=== PATIENT | male | born 1945 | race Caucasian/White ===

== ENCOUNTER 2017-05-16 06:20 | Day surgery (SDC) | payer OTHER, MEDICARE ==
[2017-05-14 15:51] VITALS: BMI 28.8
[2017-05-16] MEDS ORDERED: ROPIVACAINE HCL 0.5% 30ML VIAL ONE (07:26)
[2017-05-16] MEDS ORDERED: MIDAZOLAM HCL 2 MG/2 ML SINGLE DOSE VIAL ONE ×2 (07:27)
[2017-05-16] MEDS ORDERED: PROPOFOL 20 ML ONE ×5 (07:34)
[2017-05-16] MEDS ORDERED: SUCCINYLCHOLINE CHLORIDE 200 MG/10 ML VIAL ONE (07:34)
[2017-05-16] MEDS ORDERED: ceFAZolin SODIUM 1 GM VIAL IVPB ONE (08:49)
--- NOTE | 2017-05-16 09:07 | HP ---
Satellite [facility] - Chief Complaint Chief Complaint: right shouder pain - Past Medical History Allergies/Adverse Reactions: Allergies Allergy/AdvReac Type Severity Reaction Status Date / Time No Known Drug Allergies Allergy Verified 05/16/17 06:53 - Current Medications Current Medications: Home Medications Medication Instructions Recorded Amlodipine Besylate 7.5 mg PO DAILY 05/14/17 Atorvastatin Ca [Lipitor] 20 mg PO DAILY 05/14/17 Hydrochlorothiazide [Hctz -] 12.5 mg PO DAILY 05/14/17 Hydrocodone/Acetaminophen [[place] 1 each PO Q6H PRN #40 tablet MDD 4 05/16/17 5-325 Tablet] Satellite Physical Exam - Physical Examination Vital Signs: Vital Signs Period Temp Pulse Resp BP Sys/Strong Pulse Ox Last 24 Hr 97.6 F 65 18 142/87 97 General Appearance: Well Nourished, Well Developed, Alert & Oriented x3 ENT: Clear Lung: Normal air movement Heart: Regular rate & rhythm Extremities: Other (right shoulder- + ttp, dec rom, + neer, + edwards, nvi MRI + rct, impingement) Neurological: Intact, Alert, Oriented Satellite Impression/Plan - Impression/Plan Impression: right shoulder impingement Operative Procedure: right shoulder arthroscopy with SAD Date to be Performed: 05/16/17
--- NOTE | 2017-05-16 09:31 | OP ---
Operative Note - Note: Operative Date: 05/16/17 ([facility]) Pre-Operative Diagnosis: right shoulder impingement, rct Operation: right shoulder arthroscopy with SAD Post-Operative Diagnosis: Same as Pre-op Surgeon: Amadou Sy Anesthesiologist/PURCHASING ADMINISTRATOR: Dequan Hein Anesthesia: General, Local Specimens Removed: shavings Estimated Blood Loss (mls): 5 Operative Report Dictated: Yes
--- NOTE | 2017-05-16 10:49 | OP ---
DATE OF OPERATION: 05/16/2017 PREOPERATIVE DIAGNOSIS: Right shoulder subacromial impingement and rotator cuff tear. POSTOPERATIVE DIAGNOSIS: Right shoulder subacromial impingement and rotator cuff tear. PROCEDURE: Right shoulder acromioplasty, subacromial decompression, distal clavicle excision. SURGEON: Naomi Buenrostro MD VISUAL EDUCATOR: SHATSA Overton, Josiah Reeves MD. ANESTHESIOLOGIST: Dequan Hein CRNA, right interscalene block, LMA anesthesia. DRAINS: None. COMPLICATIONS: None. BLOOD LOSS: Minimal. BLOOD GIVEN: None. FLUID REPLACEMENT: 500 mL. INDICATION: This patient is a 72-year-old male with a preoperative diagnosis of a right shoulder subacromial impingement, weakness, pain, decreased range of motion, and a rotator cuff tear. After extensive preoperative discussions about the potential risks, complications, alternatives, and benefits to surgery versus nonsurgical treatment, the patient is electing to go forward with surgery. DESCRIPTION OF PROCEDURE: Patient was brought to the operating room, peripheral IV placed, IV sedation given. Ancef 1 g IV was given. Right interscalene block was performed. LMA anesthesia was induced. He was placed into the beach chair position with ample padding throughout. The right upper extremity was prepped and draped in a sterile fashion. Bony landmarks were marked out with a marking pen. A posterior portal was established and diagnostic glenohumeral arthroscopy was performed. Patient seen to have extensive damage to the rotator cuff. He had a complete tear. There was no rotator cuff left. Both the supraspinatus and infraspinatus were not visualized. After extensive visualization, still there was no rotator cuff. The patient had some glenohumeral osteoarthritis, minimal amount of humeral head osteoarthritis, and he did have subacromial bursitis. Next, we established a lateral portal under direct visualization using a spinal needle, a No. 11 scalpel blade, and a green cannula was introduced into the subacromial space. A soft tissue bursectomy/extensive debridement was performed with the ArthroCare wand. This revealed a moderate to large size subacromial spur and a large distal clavicle spur. Both were taken down with the 5.5-mm oval bur and fine tuned in reverse and the debris removed with a shaver. Photographs were taken before and after. Again I looked at the top, searched for the rotator cuff, moved the arm through a full range of motion. There was no rotator cuff whatsoever. The area was copiously irrigated and washed out, all instrumentation removed. Blood loss was practically zero. The arthroscopy portals were closed with 3-0 nylon sutures. The area was then washed and dried, covered with 4-inch Aquacel. A sling was applied. Total operative time was about 30 minutes. There were no complications during the case. The patient tolerated the procedure well and was brought to ambulatory recovery in stable condition. NAOMI BUENROSTRO M.D. [id number]
[2017-05-16 12:29] VITALS: BP 130/77; PULSE 85
[2017-05-16 12:47] VITALS: TEMP 98.2
[2017-05-16] MEDS ORDERED: oxyCODONE HCL 5 MG TABLET PO PRN (13:23)
[2017-05-16] MEDS ORDERED: ONDANSETRON 4 MG/2 ML VIAL IVPUSH PRN (13:23)
[2017-05-16] MEDS ORDERED: LACTATED RINGERS SOLUTION 1,000 ML IV SCH (13:30)
--- NOTE | 2017-05-17 15:19 | PATH ---
Surgical Pathology Report Patient Name: KALE NEW [facility]. Rec. #: [id number] /Age/Gender: 1945 (Age: 72) / M Account: [id number] Location: [facility] SURGICAL Taken: 05/16/2017 Received: 05/16/2017 Reported: 05/17/2017 Physicians: Amadou Sy M.D. Specimen(s) Received RIGHT SHOULDER SHAVINGS Clinical History Right shoulder impingement Final Diagnosis RIGHT SHOULDER, ARTHROSCOPIC SHAVING: PORTIONS OF SYNOVIUM, CARTILAGE, SKELETAL MUSCLE AND BONE CONSISTENT WITH ARTHROSCOPIC SHAVINGS. Electronically Signed Jorge Soto M.D. Gross Description Received in formalin, labeled "right shoulder shavings," is a 4.5 x 4.0 x 0.8 cm. aggregate of jj-yellow soft tissue fragments. A associate sales representative portion is submitted in one cassette. /05/16/2017 [place]udi05/16/2017
== END 2017-05-16 12:25 | disposition home or self-care (01) ==
LOC: JASU-SURG 06:20
PROVIDERS: ATTEND Orthopaedic Surgery
PROC: 0PB94ZZ Excision of Right Clavicle, Percutaneous Endoscopic Approach (ICD-10-PCS; 2017-05-16)
PROC: 0RBJ4ZZ Excision of Right Shoulder Joint, Percutaneous Endoscopic Approach (ICD-10-PCS; principal; 2017-05-16 08:00)
DX: M75.41 Impingement syndrome of right shoulder (principal); M75.101 Unspecified rotator cuff tear or rupture of right shoulder, not specified as traumatic
CPT/HCPCS: 88304-TC; 94760

== ENCOUNTER 2019-09-10 07:18 | Inpatient (IN) | payer OTHER, MEDICARE ==
[2019-09-09 17:41] VITALS: BMI 26.9
[2019-09-10 08:24] LABS: PH,URINE 5.5 (5.0-8.0); URINE APPEARANCE CLEAR; URINE BILIRUBIN NEGATIVE (NEGATIVE); URINE COLOR YELLOW; URINE GLUCOSE (UA) NEGATIVE (NEGATIVE); URINE KETONE NEGATIVE (NEGATIVE); URINE LEUK ESTERASE NEGATIVE (NEGATIVE); URINE NITRITE NEGATIVE (NEGATIVE); URINE PROTEIN NEGATIVE (NEGATIVE); URINE UROBILINOGEN 0.2 mg/dL (0.2-1.0)
[2019-09-10] MEDS ORDERED: DEXAMETHASONE SOD PHOSPHATE 4 MG/1 ML VIAL ONE (08:34)
[2019-09-10] MEDS ORDERED: SODIUM CHLORIDE 0.9% P/F 10 ML VIAL IJ ONE (08:34)
[2019-09-10] MEDS ORDERED: ceFAZolin SODIUM 1 GM VIAL ONE ×2 (08:34→17:29)
[2019-09-10] MEDS ORDERED: PROPOFOL 20 ML ONE ×2 (08:35)
[2019-09-10] MEDS ORDERED: EPHEDRINE SULFATE/0.9% NACL/PF 50 MG/10 ML SYRINGE NR ONE (08:41)
[2019-09-10] MEDS ORDERED: oxyCODONE HCL 5 MG TABLET PO PRN ×2 (09:02→12:36)
--- NOTE | 2019-09-10 09:06 | HP ---
Satellite [facility] - Chief Complaint Chief Complaint: right shoulder pain - Past Medical History Allergies/Adverse Reactions: Allergies Allergy/AdvReac Type Severity Reaction Status Date / Time No Known Drug Allergies Allergy Verified 09/09/19 17:41 - Current Medications Current Medications: Home Medications Medication Instructions Recorded Amlodipine Besylate 7.5 mg PO DAILY 05/14/17 Atorvastatin Ca [Lipitor] 20 mg PO DAILY 05/14/17 Hydrochlorothiazide [Hctz -] 12.5 mg PO DAILY 05/14/17 Hydrocodone/Acetaminophen [[place] 1 each PO Q6H PRN #40 tablet MDD 4 05/16/17 5-325 Tablet] Satellite Physical Exam - Physical Examination Vital Signs: Vital Signs Period Temp Pulse Resp BP Sys/Strong Pulse Ox Last 24 Hr 97.7 F 81 20 148/95 97 General Appearance: Well Nourished, Well Developed, Alert & Oriented x3 ENT: Clear Lung: Normal air movement Extremities: Other (right shoulder- + ttp ,decr rom, nvi, MRI + chronic RC arthropathy, GH djd) Neurological: Intact, Alert, Oriented Satellite Impression/Plan - Impression/Plan Impression: right shoulder chronic RC arthropathy, GH djd Operative Procedure: right reverse TSA Date to be Performed: 09/10/19
[2019-09-10] MEDS ORDERED: BUPIVACAINE LIPOSOME/PF (EXPAREL) 266 MG/20 ML VIAL ONE (09:37)
[2019-09-10] MEDS ORDERED: MIDAZOLAM HCL 2 MG/2 ML SINGLE DOSE VIAL ONE ×3 (09:42)
[2019-09-10] MEDS ORDERED: ceFAZolin SODIUM 1 GM VIAL IVPB ONE (10:30)
[2019-09-10] MEDS ORDERED: HYDROmorphone HCl 2 MG/ML VIAL ONE ×2 (11:38→13:35)
[2019-09-10] MEDS ORDERED: traMADol HCL 50 MG TABLET PO PRN (12:36)
[2019-09-10] MEDS ORDERED: ACETAMINOPHEN 1000 MG/100 ML VIAL (NON FORMULARY) IVPB ONE (12:36)
[2019-09-10] MEDS ORDERED: ONDANSETRON 4 MG/2 ML VIAL IVPUSH PRN (12:46)
[2019-09-10] MEDS ORDERED: HYDROmorphone HCl 2 MG/ML VIAL IVPUSH PRN (12:49)
--- NOTE | 2019-09-10 12:57 | OP ---
Operative Note - Note: Operative Date: 09/10/19 Pre-Operative Diagnosis: right shoulder OA Operation: right reverse Total Shoulder Replacement Post-Operative Diagnosis: Same as Pre-op Surgeon: Amadou Sy Concrete Panel Installer: Yuri Peck Anesthesiologist/AGRICULTURE MECHANIC: Sharlene Miles Anesthesia: General, Local Specimens Removed: right humeral head Estimated Blood Loss (mls): 200 Drains, Volume Out (mls): 0 Blood Volume Replaced (mls): 0 Fluid Volume Replaced (mls): 750 Operative Report Dictated: Yes
[2019-09-10] MEDS ORDERED: ONDANSETRON 4 MG/2 ML VIAL ONE (13:21)
[2019-09-10] MEDS ORDERED: ACETAMINOPHEN INJECTION 100 ML IVPB ONE (13:35)
[2019-09-10] MEDS: HYDROmorphone HCl 2 MG/ML VIAL IVPUSH PRN ×3 (13:40→13:55)
[2019-09-10] MEDS: ceFAZolin 2 GRAM PREMIX BAG IVPB SCH (17:30)
[2019-09-10 19:07] LABS: HEMATOCRIT 40.6 % (35.4-49); HEMOGLOBIN 13.9 GM/dL (11.7-16.9); MCH 31.9 pg (25.7-33.7); MCHC 34.2 g/dl (32.0-35.9); MEAN CELL VOLUME 93.2 fl (80-96); MEAN PLT VOLUME 6.6 fl (7.5-11.1); PLATELET COUNT 196 K/MM3 (134-434); RBC 4.36 M/mm3 (4.00-5.60); RDW 15.4 % (11.9-15.9); WHITE BLOOD COUNT 12.3 K/mm3 (4.0-10.0)
[2019-09-10] MEDS: LACTATED RINGERS SOLUTION 1,000 ML IV SCH ×2 (19:14→19:59)
[2019-09-10] MEDS: ACETAMINOPHEN 325 MG TABLET (FP) PO SCH ×2 (19:14→21:22)
[2019-09-10] MEDS: oxyCODONE HCL 5 MG TABLET PO PRN (21:23)
[2019-09-10] MEDS: oxyCODONE HCL 10 MG SUSTAINED ACTING TABLET PO SCH (21:28)
[2019-09-11] MEDS: oxyCODONE HCL 5 MG TABLET PO PRN (02:43)
[2019-09-11] MEDS: ACETAMINOPHEN 325 MG TABLET (FP) PO SCH ×2 (02:44→07:56)
[2019-09-11] MEDS: ceFAZolin 2 GRAM PREMIX BAG IVPB SCH (02:45)
[2019-09-11 08:19] LABS: HEMOGLOBIN 11.4 GM/dL (11.7-16.9); MCH 32.2 pg (25.7-33.7); MCHC 34.6 g/dl (32.0-35.9); MEAN CELL VOLUME 93.1 fl (80-96); MEAN PLT VOLUME 6.4 fl (7.5-11.1); PLATELET COUNT 146 K/MM3 (134-434); RBC 3.55 M/mm3 (4.00-5.60); RDW 15.1 % (11.9-15.9); WHITE BLOOD COUNT 6.8 K/mm3 (4.0-10.0)
--- NOTE | 2019-09-11 09:35 | PN ---
Progress Note, Physician Chief Complaint: R shouldern Pain Right reverse total shoulder replacement History of Present Illness: Previous notes and events reviewed awake and alert NAD denies complaints of R shoulder pain denies complaints of chest pain or SOB - Current Medication List Current Medications: Active Medications Acetaminophen (Tylenol -) 650 mg PO Q6H [facility] Stop: 09/13/19 12:44 Last Admin: 09/11/19 07:56 Dose: 650 mg Lactated Ringer's (Lactated Ringers Solution) 1,000 mls @ 75 mls/hr IV ASDIR [facility] Last Admin: 09/10/19 19:59 Dose: 0 mls Oxycodone HCl (Roxicodone -) 5 mg PO Q3H PRN PRN Reason: PAIN LEVEL 4 - 6 Last Admin: 09/11/19 02:43 Dose: 5 mg Oxycodone HCl (Roxicodone -) 10 mg PO Q3H PRN PRN Reason: PAIN LEVEL 7 - 10 Oxycodone HCl (Oxycontin -) 10 mg PO BID [facility] Stop: 09/11/19 21:59 Last Admin: 09/10/19 21:28 Dose: Not Given Tramadol HCl (Ultram -) 50 mg PO Q3H PRN PRN Reason: PAIN LEVEL 1 - 3 - Objective Vital Signs: Vital Signs Temperature 97.7 F 09/11/19 05:49 Pulse Rate 71 09/11/19 05:49 Respiratory Rate 15 09/11/19 05:49 Blood Pressure 132/70 09/11/19 05:49 O2 Sat by Pulse Oximetry (%) 92 L 09/10/19 19:12 Constitutional: Yes: No Distress, Calm Eyes: Yes: Conjunctiva Clear HENT: Yes: Atraumatic Cardiovascular: Yes: Regular Rate and Rhythm Respiratory: Yes: Regular, Wheezes Gastrointestinal: Yes: Normal Bowel Sounds, Soft Musculoskeletal: Yes: Muscle Weakness (RUE) Extremities: Yes: WNL Edema: No Wound/Incision: Yes: Dressing Dry and Intact (R shoulder) Neurological: Yes: Alert, Oriented Psychiatric: Yes: Alert, Oriented Labs: CBC, BMP 09/11/19 07:55 Problem List - Problems (1) Right shoulder pain Assessment/Plan: -POD #1 Right Reverse Total Shoulder Replacement -Orthopedic on board -pain control -PT -Incentive Spirometer Code(s): M25.511 - PAIN IN RIGHT SHOULDER (2) HTN (hypertension) Assessment/Plan: -Amlodipine, Chlorthalidone -low Na diet Code(s): I10 - ESSENTIAL (PRIMARY) HYPERTENSION (3) HLD (hyperlipidemia) Assessment/Plan: -Atorvastatin Code(s): E78.5 - HYPERLIPIDEMIA, UNSPECIFIED Assessment/Plan see problem list
[2019-09-11] MEDS ORDERED: PARoxetine HCL 20 MG TABLET PO SCH (10:00)
[2019-09-11] MEDS ORDERED: LAMOTRIGINE 100 MG PO SCH (10:00)
[2019-09-11] MEDS: oxyCODONE HCL 10 MG SUSTAINED ACTING TABLET PO SCH (10:22)
[2019-09-11 10:30] VITALS: BP 131/76; PULSE 70; TEMP 98.3
[2019-09-11] MEDS ORDERED: amLODIPine BESYLATE 5 MG TABLET (FP) PO SCH (10:45)
[2019-09-11] MEDS ORDERED: CHLORTHALIDONE 25 MG TABLET PO SCH (10:45)
[2019-09-11] MEDS ORDERED: GABAPENTIN 100 MG CAPSULE PO SCH (10:45)
[2019-09-11] MEDS ORDERED: FOLIC ACID 1 MG TABLET (FP) PO SCH (10:45)
--- NOTE | 2019-09-11 11:02 | SPEC ---
DATE OF OPERATION: 09/10/2019 PREOPERATIVE DIAGNOSIS: Right glenohumeral osteoarthritis/rotator cuff arthropathy. POSTOPERATIVE DIAGNOSIS: Right glenohumeral osteoarthritis/rotator cuff arthropathy. PROCEDURE: Right reverse total shoulder replacement. SURGEON: Naomi Buenrostro MD CONDUCTOR SYMPHONIC ORCHESTRA: SHASTA Overton ANESTHESIOLOGIST: Sharlene Miles MD ANESTHESIA: Right interscalene block with LMA anesthesia. DRAINS: None. COMPLICATIONS: None. BLOOD LOSS: 200 mL. BLOOD GIVEN: None. FLUID REPLACEMENT: 750 mL Plasma-Lyte. SPECIMEN: Right humeral head. This patient is a 74-year-old male with a preoperative diagnosis of a severe right glenohumeral osteoarthritis/rotator cuff arthropathy. After understanding the potential risks, complications, alternatives, and benefits of surgery versus nonsurgical treatment, the patient elected to undergo this procedure. DESCRIPTION OF PROCEDURE: The patient received 3 g of IV Ancef. Right interscalene block was performed. He was placed into the beach chair position with ample padding throughout. LMA anesthesia was induced. He was placed into the beach-chair position with ample padding throughout. The right upper extremity was prepped and draped in a sterile fashion. A deltopectoral approach incision was marked out using the coracoid and mid aspect of the proximal humerus as landmarks. The incision was made with the No. 15 scalpel blade. Subcutaneous hemostasis was achieved with a Bovie cautery. Dissection was done through the superficial fascia. Blunt dissection was done with my finger in the deltopectoral interval. The cephalic vein was retracted medially. The Gelpi self-retaining retractors were placed into the wound. I found the conjoined tendon off the coracoid and used the Bovie to incise lateral to it. I was then able to cut down to bone and preserve the medial and lateral capsular flaps. The rotator cuff subscapularis was very deficient. I then peeled the soft tissues, including the anterior aspect of the deltoid insertion off the humerus. The biceps tendon was seen to be frayed, degenerated out of its groove, and therefore I did a biceps tenolysis. Appropriate Fukuda and pickle-fork retractors were placed into the wound, exposing the proximal humerus. I was able to easily dislocate it anteriorly. It was extremely arthritic. Next, using the external guide and a broach, I used the oscillating saw to do a cut at the articular margin. Osteophytes were removed with the rongeur. Some soft tissue was removed with the Bovie. I was able to expose the proximal humerus quite well. Next, using the standard technique, using the Surphace Reverse Total Shoulder Replacement System, we used first the starting awl and then the sequential hand broaches until we had cortical chatter. Then we used the humeral stem-shape broaches and mallet. We eventually seated a 15-size stem that had excellent cortical contact and was very stable throughout. We did not need to use the calcar reamer as the humeral cut was at the right angle. Next, our attention was turned to the glenoid. The Bovie was used to remove soft tissue, including some capsular attachments and the labrum. Retractors were placed into the wound to retract the humerus and expose the glenoid. With excellent direct visualization, we then put on the glenoid glenosphere, lining it up appropriately and put in the 3.2-mm guidewire. We went through 2 cortices. We then used the guidewire to do the glenoid reamer. We were able to ream the glenoid until we got bleeding subchondral bone. More bone was taken inferiorly than superiorly, but it was concentric. The guidewire was then removed, and we put on the actual 28-mm glenoid baseplate, held it in place with a 24-mm central screw. Then using the typical standard technique, we put in the screws. The screws in the glenoid baseplate were a 24-mm centrally, 60-mm anteriorly, 32-mm superiorly, 32-mm inferiorly, and 36-mm posteriorly. We had excellent compression of the glenoid baseplate against the glenoid and overall concentric fit. Next, we put on a 36-mm glenosphere. This was the actual implant, impacted in place, and it was quite stable. Next, our attention was turned to the humerus. We cleaned up the humeral shaft, put in an actual size-15 humeral press-fit porous-coated stem and used the mallet to put it down to the appropriate level. We then trialed the size of the humeral glenosphere, and it ended up being a 40-mm implant. It was extremely stable. In fact, it was very difficult to dislocate. Next, this trial was removed, and the actual 40-mm humeral glenosphere was placed on, it was reduced, and was extremely stable throughout. The area was copiously irrigated and washed out. The capsule was closed anteriorly with several No. 1 Ti-Cron sutures, the deep fascial layer closed with No. 1 Ti-Cron, and the superficial deltoid fascia closed with 0 Vicryl suture. A 2-0 Vicryl was used to close the deep dermal layer, and final skin reapproximation was done with a running subcuticular 3-0 V-Loc suture. The area was then washed and dried, covered with a 10-inch Aquacel dressing. The patient was extubated in the operating room. There was total blood loss of 200 mL. There were no complications during the case. The shoulder immobilizer was placed in the operating room, and he was brought to the PACU in stable condition. Total operative time was about 1 hour and 40 minutes. The humeral prosthesis was a Press-Fit number 14 with a 4-mm metal baseplate and a 4-mm polyethylene cup constrained. NAOMI BUENROSTRO M.D. [id number]
[2019-09-11] MEDS ORDERED: PT OWN MED DRAWER 7, Y5N ONE (11:04)
--- NOTE | 2019-09-11 11:31 | PN ---
Progress Note (short form) - Note Progress Note: Ortho Pt seen and examined s/p right reverse TSA pod #1 Selected Entries 09/11/19 10:29 Temperature 98.3 F Pulse Rate 70 Respiratory 20 Rate Blood Pressure 131/76 Laboratory Tests 09/11/19 07:55 WBC 6.8 Hgb 11.4 L Hct 33.0 L D Plt Count 146 D dressing c/d/i, good rom of elbow, wrist and hand nvi a/p PT rom exercises d/c home today f/u in1 week
--- NOTE | 2019-09-11 11:33 | DS ---
Physical Examination Vital Signs: Vital Signs Temperature 98.3 F 09/11/19 10:29 Pulse Rate 70 09/11/19 10:29 Respiratory Rate 20 09/11/19 10:29 Blood Pressure 131/76 09/11/19 10:29 O2 Sat by Pulse Oximetry (%) 97 09/11/19 09:00 Labs: CBC, BMP 09/11/19 07:55 Discharge Summary Problems reviewed: Yes Reason For Visit: OSTEOARTHRITIS RIGHT SHOULDER Current Active Problems HLD (hyperlipidemia) (Acute) HTN (hypertension) (Acute) Right shoulder pain (Acute) Procedures: Principal: right reverse TSA Hospital Course: admitted for elective right reverse TSA, post-op per protocol, stable for d/c Condition: Good - Instructions Diet, Activity, Other Instructions: Post -op Instruction Sheet - Shoulder Surgery - Sling/Immobilizer : You have been placed in a sling. As long as you are wearing this, your shoulder is well protected. You may come out of the sling to dress , or do exercises as directed. You may bend and straighten the elbow, and move your wrist and fingers, but DO NOT use your own muscles to move your elbow away from your side until directed to do so. Please sleep with the sling on. You may find it more comfortable to sleep with a small pillow behind your elbow, or in a recliner. To wash your armpit, you may lean slightly forward and let your arm dangle slightly away from your side and wash with a washcloth. - Use an ice bag/pack on the shoulder for 15 minutes every 2 hours. - Pain medication was sent to your Pharmacy. - Keep your dressing clean and dry. Please call the office to make an appointment for 1 week after surgery. Your dressing will be removed at that time. - No Lifting. - Starting 1-2 days after surgery, you may take your arm out of the sling 3 times a day to move your shoulder, elbow and wrist to prevent stiffness. - Please call the office at [phone] if there are any questions or concerns. Referrals: Amadou Sy MD [Staff Physician] - Disposition: HOME - Home Medications Comprehensive Discharge Medication List: Ambulatory Orders Amlodipine Besylate 10 mg PO DAILY 05/14/17 Atorvastatin Ca [Lipitor] 20 mg PO DAILY 05/14/17 Hydrocodone/Acetaminophen [[place] 5-325 Tablet] 1 each PO Q6H PRN #40 tablet MDD 4 05/16/17 Acetaminophen [Tylenol .Extra-Strength -] 3 tablet PO PRN 09/10/19 Bupropion HCl [Wellbutrin Xl] 300 mg PO DAILY 09/10/19 Chlorthalidone 25 mg PO DAILY 09/10/19 Folic Acid 1 mg PO DAILY 09/10/19 Gabapentin [Neurontin -] 100 mg PO DAILY 09/10/19 Lamotrigine [Lamotrigine ER] 100 mg PO DAILY 09/10/19 Muriposin 1 unit .ROUTE DAILY 09/10/19 Paroxetine HCl [Paxil] 40 mg PO DAILY 09/10/19 Hydrocodone/Acetaminophen [Hydrocodone-Acetamin 5-325 mg] 1 each PO Q6H #40 tablet MDD 4 09/11/19
--- NOTE | 2019-09-11 12:34 | PN ---
Progress Note (short form) - Note Progress Note: POD #1 s/p R reverse total shoulder replacement under GA with R interscalene block. Patient doing well, pain controlled with current Rx, mild nausea with oxycodone but controlled. All questions answered.
[2019-09-11] MEDS ORDERED: ATORVASTATIN CA 20 MG TABLET (FP) PO SCH (22:00)
--- NOTE | 2019-09-12 16:48 | PATH ---
Surgical Pathology Report Patient Name: KALE NEW Med. Rec. #: [id number] /Age/Gender: 1945 (Age: 74) / M Account: [id number] Location: [facility] MED/SURG Taken: 09/10/2019 Received: 09/10/2019 Reported: 09/12/2019 Physicians: Amadou Sy M.D. Specimen(s) Received RIGHT HUMERAL HEAD Clinical History Osteoarthritis right shoulder Final Diagnosis RIGHT HUMERAL HEAD, RESECTION: DEGENERATIVE JOINT DISEASE, RIGHT SHOULDER. Electronically Signed Marcelo Richmond M.D. Gross Description Received in formalin labeled "right humeral head," is a 5.8 x 5.2 x 4.0 cm portion of bone, consistent with a humeral head. The margin of resection is smooth. There is a 3.1 cm in greatest dimension area of eburnation present. The remaining articular surface is jj-brown and focally granular. The underlying trabecular bone is yellow and hard. A data entry representative section is submitted in one cassette, following decalcification. /09/10/2019 [facility]/09/10/2019
== END 2019-09-11 13:15 | disposition home or self-care (01) | DRG 483 ==
LOC: JSAMEDAYSX 07:18 → EDSTATUS 10:00 → J8W 18:14
PROVIDERS: ADMIT Orthopaedic Surgery; ATTEND Orthopaedic Surgery
PROC: 0RRJ00Z Replacement of Right Shoulder Joint with Reverse Ball and Socket Synthetic Substitute, Open Approach (ICD-10-PCS; principal; 2019-09-10 09:30)
DX: M19.011 Primary osteoarthritis, right shoulder (principal); I10 Essential (primary) hypertension; E78.5 Hyperlipidemia, unspecified
CPT/HCPCS: 36415; 73030-TC-RT-FY; 81003; 85027; 88304-TC; 88311-TC; 94010; 94760; 97116-GP; 97161-GP; J0131

== ENCOUNTER 2019-10-07 15:31 | Inpatient (IN) | payer OTHER, MEDICARE ==
--- NOTE | 2019-10-07 15:51 | PDOC ---
History of Present Illness - General History Source: Patient Exam Limitations: No Limitations - History of Present Illness Initial Comments: 10/07/19 15:51 Garrick Fitzgerald is a 74M with PMH HTN, HLD, total shoulder arthroplasty 4 weeks ago presenting with R shoulder dislocation sent from surgeon Dr. Sy for admission for OR closed reduction. Patient reports he had R shoulder TSA [address] Sy for correction on injuries from shoulder trauma a few years ago. Tolerated well and recovered, but hardware dislocated 4 days ago. Patient was able to reduceshoulder by himself. Today shoulder hardware dislocated again, unable to reduce alone. Presented to ortho office, unable to reduce this morning. OR equipment unavailable today, so sent by ortho for admission for OR tomorrow for closed reduction. Patient reports constant 10/10 pain in shoulder worse when moving, but has no numbness/tingling/weakness in right elbow or hand. Denies fever/chills, N/V. At home tried taking Percocet and Tylenol with limited relief. NKDA PMH HTN, HLD. No other cardiac/pulmonary history. PSH R shoulder rotator cuff, R knee replacement <Danny Finn - Last Filed: 10/07/19 17:12> <Estephania Brewster - Last Filed: 10/09/19 10:31> - General Chief Complaint: Shoulder Dislocation Stated Complaint: SHOULDER PAIN Time Seen by Provider: 10/07/19 15:42 Past History - Past Medical History Anemia: No Asthma: No Cancer: No Cardiac Disorders: No CVA: No COPD: No CHF: No Dementia: No Diabetes: No GI Disorders: No Disorders: No HTN: Yes (borderline) Hypercholesterolemia: No Liver Disease: No Seizures: No Thyroid Disease: No - Surgical History Abdominal Surgery: No Appendectomy: No Cardiac Surgery: No Cholecystectomy: No Lung Surgery: No Neurologic Surgery: No Orthopedic Surgery: Yes (R KNEE ARTHROSCOPY,R RTC REPAIR) - Immunization History Immunization Up to Date: Yes - Psycho Social/Smoking Cessation Hx Smoking Status: No Smoking History: Current every day smoker Years of Tobacco Use: 50 Have you smoked in the past 12 months: Yes Number of Cigarettes Smoked Daily: 8 Information on smoking cessation initiated: Yes 'Breaking Loose' booklet given: 09/10/19 Hx Alcohol Use: Yes Drug/Substance Use Hx: No Substance Use Type: Alcohol, Marijuana Hx Substance Use Treatment: Yes <Danny Finn - Last Filed: 10/07/19 17:12> <Daniel Brewsterie Titi - Last Filed: 10/09/19 10:31> - Past Medical History Allergies/Adverse Reactions: Allergies Allergy/AdvReac Type Severity Reaction Status Date / Time No Known Drug Allergies Allergy Verified 10/07/19 15:52 Home Medications: Ambulatory Orders Amlodipine Besylate 10 mg PO DAILY 05/14/17 Atorvastatin Ca [Lipitor] 20 mg PO DAILY 05/14/17 Acetaminophen [Tylenol .Extra-Strength -] 3 tablet PO PRN 09/10/19 Bupropion HCl [Wellbutrin Xl] 300 mg PO DAILY 09/10/19 Chlorthalidone 25 mg PO DAILY 09/10/19 Folic Acid 1 mg PO DAILY 09/10/19 Gabapentin [Neurontin -] 100 mg PO DAILY 09/10/19 Lamotrigine [Lamotrigine ER] 100 mg PO DAILY 09/10/19 Muriposin 1 unit .ROUTE DAILY 09/10/19 Paroxetine HCl [Paxil] 40 mg PO DAILY 09/10/19 Hydrocodone/Acetaminophen [Hydrocodone-Acetamin 5-325 mg] 1 each PO Q6H #40 tablet MDD 4 10/08/19 Review of Systems - Review of Systems Able to Perform ROS?: Yes Constitutional: No: Chills, Fever, Weakness HEENTM: No: Symptoms Reported Respiratory: No: Symptoms reported Cardiac (ROS): No: Chest Pain, Irregular Heart Rate, Lightheadedness, Palpitations, Syncope ABD/GI: No: Constipated, Diarrhea, Nausea, Poor Appetite, Poor Fluid Intake, Vomiting : No: Symptoms Reported Musculoskeletal: No: Symptoms Reported Integumentary: No: Symptoms Reported Neurological: No: Symptoms reported Endocrine: No: Symptoms Reported Hematologic/Lymphatic: No: Symptoms Reported All Other Systems: Reviewed and Negative <Danny Finn - Last Filed: 10/07/19 17:12> *Physical Exam - Vital Signs Last Vital Signs Temp Pulse Resp BP Pulse Ox 99.0 F 79 18 120/70 94 L 10/07/19 15:38 10/07/19 15:38 10/07/19 15:38 10/07/19 15:38 10/07/19 15:38 - Physical Exam General Appearance: Yes: Nourished, Appropriately Dressed, Other (resting comfortably in bed, comedic, in good spirits). No: Apparent Distress HEENT: positive: EOMI, LESLIE, Normal Voice, Pharynx Normal. negative: Symmetrical, Scleral Icterus (R), Scleral Icterus (L), Pharyngeal Erythema, Tonsillar Exudate, Tonsillar Erythema Neck: positive: Trachea midline, Normal Thyroid, Supple. negative: Tender, Rigid, Lymphadenopathy (R), Lymphadenopathy (L) Respiratory/Chest: positive: Lungs Clear, Normal Breath Sounds. negative: Chest Tender, Respiratory Distress, Crackles, Rales, Rhonchi, Stridor, Wheezing Cardiovascular: positive: Regular Rhythm, Regular Rate. negative: Murmur Gastrointestinal/Abdominal: positive: Normal Bowel Sounds, Soft. negative: Tender, Organomegaly, Pulsatile Mass Musculoskeletal: positive: Normal Inspection. negative: CVA Tenderness, Vertebral Tenderness Extremity: positive: Normal Capillary Refill, Normal Inspection, Tender (pain with movement of R shoulder), Pelvis Stable, Other (RUE: no decreased sensation to R hand, radial pulse intact, cap refill <2sec, 5/5 motor strength and full ROM at records management associate/wrist elbow compared to L arm, unable to range or test flexor/ extensor strength at L shoulder 2/2 pain). negative: Normal Range of Motion, Pedal Edema, Swelling Integumentary: positive: Normal Color, Dry, Warm Neurologic: positive: Fully Oriented, Alert, Normal Mood/Affect, Normal Response <Danny Finn - Last Filed: 10/07/19 17:12> - Vital Signs Last Vital Signs Temp Pulse Resp BP Pulse Ox 97.9 F 86 18 135/73 92 L 10/09/19 06:00 10/09/19 06:00 10/09/19 06:00 10/09/19 06:00 10/09/19 09:00 <Estephania Brewster - Last Filed: 10/09/19 10:31> ED Treatment Course - LABORATORY CBC & Chemistry Diagram: 10/07/19 16:55 10/07/19 16:55 - Medications Given in the ED: ED Medications Discontinued Medications Generic Name Dose Route Start Last Admin Trade Name Freq PRN Reason Stop Dose Admin Amlodipine Besylate 10 mg 10/08/19 10:00 10/08/19 14:22 Norvasc - PO Not Given DAILY [facility] Atorvastatin Calcium 20 mg 10/07/19 22:00 10/07/19 22:12 Lipitor - PO Not Given [facility] Bupropion HCl 300 mg 10/08/19 10:00 10/08/19 14:23 Wellbutrin Xl - PO Not Given DAILY [facility] Chlorthalidone 25 mg 10/08/19 10:00 10/08/19 14:19 Hygroton - PO Not Given DAILY [facility] Diphenhydramine HCl 25 mg 10/07/19 20:27 10/07/19 21:21 Benadryl - PO 10/07/19 20:28 25 mg ONCE ONE Administration Folic Acid 1 mg 10/08/19 10:00 10/08/19 14:02 Folic Acid - PO Not Given DAILY [facility] Gabapentin 100 mg 10/08/19 10:00 10/08/19 14:21 Neurontin - PO Not Given DAILY [facility] Heparin Sodium (Porcine) 5,000 unit 10/07/19 22:00 10/08/19 14:15 Heparin - SQ Not Given BID [facility] Lamotrigine 100 mg 10/08/19 10:00 10/08/19 14:21 Lamictal - PO Not Given DAILY [facility] Melatonin 10 mg 10/08/19 23:31 10/09/19 00:25 Melatonin PO 10/08/19 23:32 10 mg ONCE ONE Administration Morphine Sulfate 2 mg 10/08/19 00:55 10/08/19 01:09 Morphine Sulfate IVPUSH 10/08/19 00:56 2 mg ONCE ONE Administration Oxycodone HCl 5 mg 10/07/19 16:15 10/07/19 16:30 Roxicodone - PO 10/07/19 16:16 5 mg ONCE ONE Administration Oxycodone HCl 5 mg 10/07/19 16:52 10/07/19 20:55 Roxicodone - PO 5 mg Q6H PRN Administration PAIN LEVEL 6-10 Paroxetine HCl 40 mg 10/08/19 10:00 10/08/19 14:22 Paxil - PO Not Given DAILY [facility] <Estephania Brewster - Last Filed: 10/09/19 10:31> Medical Decision Making - Medical Decision Making 10/07/19 16:43 Patient has history of R shoulder TSA presenting from ortho office for recurrent hardware dislocations requiring admission for OR reduction. VS stable , patient complaining of 10/10 pain but R arm is neurovascular intact. Obtaining pre-op labs, ECG, R shoulder XR, and giving 5mg oxycodone for pain control. Spoke to Dr. Sy at bedside, evaluated patient and would like admission. Dr. Nance contacted by Dr. Sy, accepts patient to Med-Surg under his service overnight. Plan for 8AM OR, NPO at midnight. 10/07/19 17:09 ECG notable for sinus rhythm 1st degree AV block with HR 84, QRS 112, QTc 453, no ischemic changes or TWI. <Danny Finn - Last Filed: 10/07/19 17:12> Discharge - Discharge Information Problems reviewed: Yes <Danny Finn - Last Filed: 10/07/19 17:12> - Discharge Information Problems reviewed: Yes - Admission Yes <Estephania Brewster - Last Filed: 10/09/19 10:31> - Discharge Information Clinical Impression/Diagnosis: History of revision of total shoulder arthroplasty Right shoulder pain Qualifiers: Chronicity: acute Qualified Code(s): M25.511 - Pain in right shoulder Shoulder dislocation Qualifiers: Encounter type: initial encounter Laterality: right Qualified Code(s): S43.004A - Unspecified dislocation of right shoulder joint, initial encounter Condition: Stable
--- NOTE | 2019-10-07 16:02 | PDOC ---
Attending Attestation - Resident Resident Name: Danny Finn - ED Attending Attestation I have performed the following: I have examined & evaluated the patient, The case was reviewed & discussed with the resident, I agree w/resident's findings & plan - HPI HPI: 10/07/19 16:01 74-year-old male with history of hypertension, hyperlipidemia, severe osteoarthritis, recent procedure on 09/10/[address] Sy for right reverse total shoulder replacement. Pt Presenting today with rt shoulder dislocation this morning; over the weekend several days ago he had rt shoulder dislocation, self reduced.. 10/07/19 16:37 - Physicial Exam PE: 10/07/19 16:01 General: NAD, well appearing Vascular: 2+ DP pulses symmetric and equal. Back: no midline tenderness, no stepoffs, FROM MSK: rt shoulder squared off, +prox humerus TTP, overlying surgical scar prsent , well healed, unable to elevated, abduct fully or raise >90 ddeg above head/ level of his shoulder. prox strength 5/5 actively against resistance. 5/5 shoulder shrug strength against resistance. deltoid sensation intact; sensation grossly intact in median/radial/ulnar distribution. distal circuit rider strength 5/5. 2 + radialis pulses bilaterally and symmetric. Neuro: alert, no focal neurologic deficits Skin: color normal color, warm and well perfused. Cap refill <2 sec. 10/09/19 10:28 - Medical Decision Making 10/07/19 16:02 Vital Signs Temp Pulse Resp BP Pulse Ox 99.0 F 79 18 120/70 94 L 10/07/19 15:38 10/07/19 15:38 10/07/19 15:38 10/07/19 15:38 10/07/19 15:38 ddx. dislocation, prox humerus fx, clavicle fx. NVI VS reviewed, wnl Xray rt shoulder. admitting for operative reduction, given history of severe OA, consult with Dr Sy, SHASTA Peck, admit to medical service (Dr Nance) for operative reduction given unsuccessful attempt in the outpatient setting, recent surgery and non-ped[place] bay shoulder. admitting to Dr Nance service. 10/09/19 10:31 Heart Score/ECG Review #1 ECG reviewed & interpreted by me at: 16:45 General ECG Interpretation: Sinus Rhythm, Normal Rate, Normal Intervals 10/07/19 17:04 EKG normal sinus rhythm 84 bpm, no interval abnormalities, narrow QRS, ST and T wave segments and morphology normal.
[2019-10-07] MEDS ORDERED: oxyCODONE HCL 5 MG TABLET PO ONE (16:15)
--- NOTE | 2019-10-07 16:18 | PDOC ---
*Physical Exam - Vital Signs Last Vital Signs Temp Pulse Resp BP Pulse Ox 99.0 F 79 18 120/70 94 L 10/07/19 15:38 10/07/19 15:38 10/07/19 15:38 10/07/19 15:38 10/07/19 15:38 Medical Decision Making - Medical Decision Making 10/07/19 16:15 74 y/o male with a PMHx of Thyroid CA here w/dislocated shoulder. H/o shoulder replacement in early 2019. Evaluated by orthopedic surgery this a.m. with failed reduction sent to ED for OR reduction. Dr. Finn discussed case w/Drs. Gomez/Yossi, patient to OR tomorrow. Discharge - Discharge Information Problems reviewed: Yes Clinical Impression/Diagnosis: Right shoulder pain, Shoulder dislocation, History of revision of total shoulder arthroplasty - Follow up/Referral - Patient Discharge Instructions - Post Discharge Activity
[2019-10-07] MEDS ORDERED: oxyCODONE HCL 5 MG TABLET ONE (16:27)
--- NOTE | 2019-10-07 16:50 | PN ---
Progress Note (short form) - Note Progress Note: Pt seen and examined in ER. He is a 74 year old right hand dominant male patient with severe B/L shoulder RTC arthropathy. I did a right shoulder Reverse Total Shoulder Replacement about 11 weeks ago. He was doing exceptionally well until this morning when his right shoulder prosthesis dislocated without any known history of trauma. I was unable to reduce it in the office today. We tried to arrange to perform his surgery today, but the necessary equipment did not arrive in time, and still has many hours to be properly sterilized and processed. Therefore, for pain control and medical preoperative optimization we decided together for [facility], and to do his surgery first thing tomorrow morning, at 8am. I will attempt closed reduction under anesthesia in the OR tomorrow. If that is not successful I will proceed to an open reduction. If that is not possible then I will proceed with a Total Shoulder Replacement prosthesis revision, details unknown at this time. All questions and concerns were answered for the patient. He understands and agrees with the plan. He will be seen by a [facility] (his PCP does not have privileges at this hospital.) NPO after [facility]. To the OR tomorrow at 8am.
[2019-10-07] MEDS ORDERED: DOCUSATE SODIUM 100 MG CAPSULE (FP) PO PRN (16:52)
[2019-10-07] MEDS ORDERED: ACETAMINOPHEN 325 MG TABLET (FP) PO PRN ×2 (16:52→20:27)
[2019-10-07] MEDS ORDERED: oxyCODONE HCL 5 MG TABLET PO PRN (16:52)
--- NOTE | 2019-10-07 16:54 | HP ---
Admitting History and Physical - Primary Care Physician PCP: Bong Nance - Admission Chief Complaint: right shoulder prosthetic dislocation History of Present Illness: 74-year-old male with history of hypertension, hyperlipidemia, severe osteoarthritis, recent procedure on 09/10/[address] Sy for right reverse total shoulder replacement. Pt Presenting today with rt shoulder dislocation this morning; over the weekend several days ago he had rt shoulder dislocation, self reduced.. History Source: Patient Limitations to Obtaining History: No Limitations - Past Medical History Cardiovascular: Yes: HTN - Smoking History Smoking history: Current every day smoker Have you smoked in the past 12 months: Yes Aproximately how many cigarettes per day: 8 - Alcohol/Substance Use Hx Alcohol Use: Yes Home Medications - Allergies Allergies/Adverse Reactions: Allergies Allergy/AdvReac Type Severity Reaction Status Date / Time No Known Drug Allergies Allergy Verified 10/07/19 15:52 - Home Medications Home Medications: Ambulatory Orders Amlodipine Besylate 10 mg PO DAILY 05/14/17 Atorvastatin Ca [Lipitor] 20 mg PO DAILY 05/14/17 Acetaminophen [Tylenol .Extra-Strength -] 3 tablet PO PRN 09/10/19 Bupropion HCl [Wellbutrin Xl] 300 mg PO DAILY 09/10/19 Chlorthalidone 25 mg PO DAILY 09/10/19 Folic Acid 1 mg PO DAILY 09/10/19 Gabapentin [Neurontin -] 100 mg PO DAILY 09/10/19 Lamotrigine [Lamotrigine ER] 100 mg PO DAILY 09/10/19 Muriposin 1 unit .ROUTE DAILY 09/10/19 Paroxetine HCl [Paxil] 40 mg PO DAILY 09/10/19 Hydrocodone/Acetaminophen [Hydrocodone-Acetamin 5-325 mg] 1 each PO Q6H #40 tablet MDD 4 09/11/19 Review of Systems - Review of Systems Constitutional: reports: No Symptoms Eyes: reports: No Symptoms HENT: reports: No Symptoms Neck: reports: No Symptoms Cardiovascular: reports: No Symptoms Respiratory: reports: No Symptoms Gastrointestinal: reports: No Symptoms Genitourinary: reports: No Symptoms Breasts: reports: No Symptoms Reported Musculoskeletal: reports: Joint Pain (RIGHT SHOULDER) Integumentary: reports: No Symptoms Neurological: reports: No Symptoms Endocrine: reports: No Symptoms Hematology/Lymphatic: reports: No Symptoms Psychiatric: reports: No Symptoms Physical Examination Vital Signs: Vital Signs Temperature 99.0 F 10/07/19 15:38 Pulse Rate 79 10/07/19 15:38 Respiratory Rate 18 10/07/19 15:38 Blood Pressure 120/70 10/07/19 15:38 O2 Sat by Pulse Oximetry (%) 94 L 10/07/19 15:38 Constitutional: Yes: Mild Distress HENT: Yes: WNL Neck: Yes: WNL Cardiovascular: Yes: WNL Respiratory: Yes: WNL Gastrointestinal: Yes: WNL Renal/: Yes: WNL Musculoskeletal: Yes: Joint Stiffness, Joint Swelling Extremities: Yes: Deformity (RIGHT SHOULDER) Edema: No Integumentary: Yes: WNL Wound/Incision: Yes: Clean/Dry Neurological: Yes: WNL ...Motor Strength: RUE (WEAK 4/5) Psychiatric: Yes: WNL Problem List - Problems (1) HLD (hyperlipidemia) Code(s): E78.5 - HYPERLIPIDEMIA, UNSPECIFIED (2) HTN (hypertension) Code(s): I10 - ESSENTIAL (PRIMARY) HYPERTENSION (3) Right shoulder pain Code(s): M25.511 - PAIN IN RIGHT SHOULDER Assessment/Plan MEDICALLY CLEARED FOR SURGERY TOMORROW RIGHT SHOULDER PROSTHESIS. EKG PENDING LABS PENDING MEDICATIONS RESTARTED NPO AFTER MIDNIGHT DVT PROPHYLAXIS
[2019-10-07 17:36] LABS: BASO % 0.6 % (0-2.0); EOS % 1.8 % (0-4.5); HEMOGLOBIN 12.6 GM/dL (11.7-16.9); MCH 32.3 pg (25.7-33.7); MCHC 34.9 g/dl (32.0-35.9); MEAN CELL VOLUME 92.6 fl (80-96); MEAN PLT VOLUME 6.5 fl (7.5-11.1); MONO % 8.8 % (3.8-10.2); NEUT % 77.8 % (42.8-82.8); PLATELET COUNT 169 K/MM3 (134-434); RBC 3.89 M/mm3 (4.00-5.60); RDW 15.1 % (11.9-15.9); WHITE BLOOD COUNT 7.2 K/mm3 (4.0-10.0)
[2019-10-07 17:45] LABS: INR 1.02 (0.83-1.09)
[2019-10-07 17:48] LABS: ACTIVATED PTT 33.1 SECONDS (25.2-36.5)
[2019-10-07 17:56] LABS: ALBUMIN 3.7 g/dl (3.4-5.0); BILIRUBIN,TOTAL 0.8 mg/dL (0.2-1); BLOOD UREA NITROGEN 16.4 mg/dL (7-18); CALCIUM 9.6 mg/dL (8.5-10.1); CREATININE 1.1 mg/dL (0.55-1.3); POTASSIUM 3.8 mmol/L (3.5-5.1); TOT PROT 6.7 g/dl (6.4-8.2)
[2019-10-07] MEDS ORDERED: diphenhydrAMINE HCL 25 MG CAPSULE (FP) PO ONE (20:27)
[2019-10-07] MEDS: HEPARIN NA (PORCINE) 5,000 UNITS/ML 1ML VIAL SQ SCH (21:21)
[2019-10-07] MEDS: ATORVASTATIN CA 20 MG TABLET (FP) PO SCH ×2 (21:21→22:12)
[2019-10-07 23:48] VITALS: BMI 26.2
[2019-10-08] MEDS ORDERED: MORPHINE SULFATE 2 MG/ML VIAL IVPUSH ONE (00:55)
[2019-10-08] MEDS ORDERED: ceFAZolin SODIUM 1 GM VIAL IVPB ONE (08:35)
[2019-10-08] MEDS ORDERED: amLODIPine BESYLATE 10 MG TABLET (FP) PO SCH (10:00)
[2019-10-08] MEDS ORDERED: lamoTRIgine 100 MG TABLET PO SCH (10:00)
[2019-10-08] MEDS ORDERED: CHLORTHALIDONE 25 MG TABLET PO SCH (10:00)
[2019-10-08] MEDS ORDERED: PARoxetine HCL 20 MG TABLET PO SCH (10:00)
[2019-10-08] MEDS ORDERED: GABAPENTIN 100 MG CAPSULE PO SCH (10:00)
[2019-10-08] MEDS ORDERED: BACITRACIN 50,000 UNITS VIAL TP ONE (10:00)
[2019-10-08] MEDS ORDERED: FOLIC ACID 1 MG TABLET (FP) PO SCH (10:00)
--- NOTE | 2019-10-08 10:14 | OP ---
Operative Note - Note: Operative Date: 10/08/19 ([facility]) Pre-Operative Diagnosis: right dislocated reverse TSA Operation: right revision reverse TSA Post-Operative Diagnosis: Same as Pre-op Surgeon: Amadou Sy Buffer Nickel: Yuri Peck Anesthesia: General, Local Estimated Blood Loss (mls): 100
[2019-10-08] MEDS ORDERED: DOCUSATE SODIUM 100 MG CAPSULE (FP) PO PRN (12:16)
[2019-10-08] MEDS ORDERED: LACTATED RINGERS SOLUTION 1,000 ML IV SCH (12:45)
[2019-10-08] MEDS: HEPARIN NA (PORCINE) 5,000 UNITS/ML 1ML VIAL SQ SCH ×2 (14:15→23:04)
--- NOTE | 2019-10-08 15:08 | PN ---
Progress Note, Physician Chief Complaint: right shoulder pain History of Present Illness: 74 year old male with PMH HTN, HLD, OA- recent right shoulder surgery presents to the ED for right shoulder dislocation, he went to the OR 10/08/2019 and had revision. ortho states he is stable for discharge. patient feels he is unsteady and groggy from anesthesia and is adamnt on staying overnight. - Current Medication List Current Medications: Active Medications Acetaminophen (Tylenol -) 650 mg PO Q6H PRN PRN Reason: PAIN LEVEL 6-10 Amlodipine Besylate (Norvasc -) 10 mg PO DAILY [facility] Atorvastatin Calcium (Lipitor -) 20 mg PO HS [facility] Bupropion HCl (Wellbutrin Xl -) 300 mg PO DAILY [facility] Chlorthalidone (Hygroton -) 25 mg PO DAILY [facility] Docusate Sodium (Colace -) 100 mg PO BID PRN PRN Reason: CONSTIPATION Folic Acid (Folic Acid -) 1 mg PO DAILY [facility] Gabapentin (Neurontin -) 100 mg PO DAILY [facility] Heparin Sodium (Porcine) (Heparin -) 5,000 unit SQ BID [facility] Cefazolin Sodium 3 gm/ (Dextrose) 100 mls @ 100 mls/hr IVPB Q8H [facility] Stop: 10/09/19 15:59 Lactated Ringer's (Lactated Ringers Solution) 1,000 mls @ 125 mls/hr IV ASDIR M[facility] Lamotrigine (Lamictal -) 100 mg PO DAILY [facility] Oxycodone HCl (Roxicodone -) 5 mg PO Q6H PRN PRN Reason: PAIN LEVEL 6-10 Paroxetine HCl (Paxil -) 40 mg PO DAILY [facility] - Objective Vital Signs: Vital Signs Temperature 98.1 F 10/08/19 14:09 Pulse Rate 87 10/08/19 14:09 Respiratory Rate 18 10/08/19 14:09 Blood Pressure 112/54 L 10/08/19 14:09 O2 Sat by Pulse Oximetry (%) 96 10/08/19 12:45 Constitutional: Yes: Well Nourished, No Distress Eyes: Yes: Conjunctiva Clear HENT: Yes: Atraumatic, Normocephalic Neck: Yes: Supple Cardiovascular: Yes: Regular Rate and Rhythm Respiratory: Yes: Regular, CTA Bilaterally Gastrointestinal: Yes: Normal Bowel Sounds Genitourinary: Yes: WNL Musculoskeletal: Yes: Other (right arm in sling) Wound/Incision: Yes: Clean/Dry Neurological: Yes: Alert, Oriented Labs: CBC, BMP 10/07/19 16:55 10/07/19 16:55 INR, PTT INR 1.02 (0.83-1.09) 10/07/19 16:55 Problem List - Problems (1) Right shoulder pain Assessment/Plan: ortho following s/p revision today had nerve block dc planning- patient will leave tomorrow am- will pick him up Code(s): M25.511 - PAIN IN RIGHT SHOULDER (2) HLD (hyperlipidemia) Assessment/Plan: cont home statin Code(s): E78.5 - HYPERLIPIDEMIA, UNSPECIFIED (3) HTN (hypertension) Assessment/Plan: cont home bp meds Code(s): I10 - ESSENTIAL (PRIMARY) HYPERTENSION
[2019-10-08] MEDS ORDERED: CEFAZOLIN 3 GM in DEXTROSE 5%-WATER - 50 ML IVPB SCH (16:00)
[2019-10-08] MEDS: CEFAZOLIN 3 GM in DEXTROSE 5%-WATER - 100 ML IVPB SCH (16:28)
--- NOTE | 2019-10-08 16:29 | OP ---
DATE OF OPERATION: DATE OF DICTATION: 10/08/2019 PREOPERATIVE DIAGNOSIS: Dislocated right total shoulder replacement prosthesis. POSTOPERATIVE DIAGNOSIS: Dislocated right total shoulder replacement prosthesis. PROCEDURE PERFORMED: Open reduction of right total shoulder replacement prosthesis and prosthesis revision. SURGEON: Naomi Buenrostro MD INDUSTRIAL CUSTODIAN: SHASTA Overton; , SUPERIOR COURT CLERK ANESTHESIOLOGIST: Belgica Roy MD ANESTHESIA: Right interscalene block and general endotracheal anesthesia. DRAINS: None. COMPLICATIONS: None. SPECIMENS: None. BLOOD LOSS: Minimal. BLOOD GIVEN: None. FLUID REPLACEMENT: PlasmaLyte 1000 mL. INDICATIONS: The patient is a 74-year-old male with the preoperative diagnosis of a dislocated right total shoulder replacement prosthesis. After understanding the potential risks, complications, alternatives and benefits of surgery versus nonsurgical treatment, the patient elected to undergo this procedure. We had extensive preoperative discussions about realistic expectations, the surgery itself, the possibilities of the surgery, postoperative care and postoperative function. DESCRIPTION OF PROCEDURE: The patient was brought to the operating room, peripheral IV placed and IV sedation given. IV Ancef 3 g was given. A right interscalene block was performed. General endotracheal anesthesia was induced. He was placed into the beach-chair position with ample padding throughout. I then was successful in doing a closed reduction. Although the prosthesis was stable and I was not able to dislocate it, we did note that the x-ray showed that the glenosphere had rotated off the baseplate and would need to be revised. Therefore, the decision was made to do a revision. The arm was prepped and draped in sterile fashion. The previous incision was marked out with a marking pen. The previous incision was used again. A number 10 scalpel blade was utilized to make an incision. Subcutaneous hemostasis was achieved with Bovie cautery. The 4-0 V-Loc suture was removed. Distal dissection was done following the previous surgical plane with my finger in a blunt dissection manner, but also with the Metzenbaum scissors. I traced down through the deltoid fascia and the deltopectoral interval to the capsular repair. Stitches were removed and I was able to sharply dissect through the previous capsular repair. Of note, the capsular repair had only been partially disrupted. It did not look that loose. The prosthesis was reduced. The area was copiously irrigated and washed out. I moved the arm and under direct visualization, the glenosphere did not move and everything looked fine except it was malpositioned. Therefore, it is possible that it dislocated, shifted and was impacted back into place in this abnormal position, leading to further instability. The shoehorn was used to dislocate the humeral prosthesis. The fork was used to dislodge the metal baseplate and polyethylene. Both of these were inspected. They were not loose. They were not easy to get off and there were no points of impaction, cracks or evidence of prosthesis failure on the humeral side. The humeral stem was quite stable. It did not move at all in an axial way or a rotational way. The area was copiously irrigated and washed out. There were no signs of infection. I could not just pull off the glenosphere. It was actually stable in this abnormal position. I then screwed on the impactor and then was able to pull it off. The baseplate looked good in the glenoid. It was quite stable, not malpositioned, excellent coverage, no gapping. The area was copiously irrigated and washed out with 1 L of normal saline infused with 50,000 units of bacitracin. Next, I put on a regular (non-eccentric) 40-mm glenosphere. I impacted it into place. I tried to pull on it and toggle it with the impactor ruddy. It did not move at all. I impacted it further, unscrewed the impactor ruddy, did a secondary impaction. It was quite stable, completely covered the baseplate. There was no abnormal angulation or malrotation, and there was no motion. Next, we trialed with a 4-mm metal baseplate and a 6-mm constrained polyethylene. It was quite stable. It was not overstuffed. There was a little bit of shucking. It put the arm through a full range of motion and under direct visualization there were no points of subluxation or almost dislocation. I even tried to dislocate it actively and it was quite difficult to put the arm through an external rotation position to try to anteriorly dislocate it and did not even get close. I then used the shoehorn to dislocate it, but even that was not that easy. I then removed the trial and put on the actual new prosthesis with again a 4-mm metal baseplate and a 6-mm constrained poly liner. It was knocked into place. I tried to pull it off. I could not. It was knocked into place further. I then reduced it with the shoehorn and tried to dislocate it. I could not. It moved quite well. There were no points of abnormal impaction. The glenosphere was again checked. Everything looked quite good. The area was copiously irrigated and washed out again. Closure was done with meticulous closure of the anterior capsule with 0 Vicryl. Then 0 Vicryl was used to close the deltopectoral fascia. I imbricated a bit to try to get some additional anterior stability. The deep deltoid layer was closed with 0 Vicryl and final skin reapproximation was done with 3-0 Monocryl. The area was then washed and dried, covered with SwiftSet skin glue and Aquacel dressing. Total blood loss was about 75 mL. He was put into a shoulder immobilizer and extubated. There were no complications during the case. Total operative time was about 1 hour. He was brought to the regular recovery room in stable condition. NAOMI BUENROSTRO M.D. [id number]
--- NOTE | 2019-10-08 16:44 | EKG ---
Test Reason : Blood Pressure : / mmHG Vent. Rate : 084 BPM Atrial Rate : 084 BPM P-R Int : 224 ms QRS Dur : 112 ms QT Int : 384 ms P-R-T Axes : 042 -28 061 degrees QTc Int : 453 ms SINUS RHYTHM WITH 1ST DEGREE A-V BLOCK MINIMAL VOLTAGE CRITERIA FOR LVH, MAY BE NORMAL VARIANT BORDERLINE ECG Confirmed by MD JOSE L, MONIQUE ([id number]) on 10/08/2019 4:44:15 PM Referred By: Confirmed By:MONIQUE DOMINGO MD
[2019-10-08] MEDS: oxyCODONE HCL 5 MG TABLET PO PRN (20:25)
[2019-10-08] MEDS ORDERED: ATORVASTATIN CA 20 MG TABLET (FP) PO SCH (22:00)
[2019-10-08] MEDS: ACETAMINOPHEN 325 MG TABLET (FP) PO PRN (23:03)
[2019-10-08] MEDS ORDERED: MELATONIN 5 MG TABLETS PO ONE (23:31)
[2019-10-09] MEDS: CEFAZOLIN 3 GM in DEXTROSE 5%-WATER - 100 ML IVPB SCH ×3 (00:26→11:25)
[2019-10-09] MEDS: oxyCODONE HCL 5 MG TABLET PO PRN (05:46)
[2019-10-09 07:39] VITALS: PULSE 86; TEMP 97.9
[2019-10-09] MEDS: ACETAMINOPHEN 325 MG TABLET (FP) PO PRN (08:22)
--- NOTE | 2019-10-09 08:34 | PN ---
Progress Note (short form) - Note Progress Note: Anesthesia POD#1 S/P Reverse Right Total shoulder repair under GA and Interscalene block. VSS, pain is under control with suppliment pain medications, no N/V No complications to anesthesia seen. Lucille Johnson MD.
[2019-10-09] MEDS ORDERED: lamoTRIgine 100 MG TABLET PO SCH (10:00)
[2019-10-09] MEDS ORDERED: GABAPENTIN 100 MG CAPSULE PO SCH (10:00)
[2019-10-09] MEDS ORDERED: amLODIPine BESYLATE 10 MG TABLET (FP) PO SCH (10:00)
[2019-10-09] MEDS ORDERED: FOLIC ACID 1 MG TABLET (FP) PO SCH (10:00)
[2019-10-09] MEDS ORDERED: CHLORTHALIDONE 25 MG TABLET PO SCH (10:00)
[2019-10-09] MEDS ORDERED: PARoxetine HCL 20 MG TABLET PO SCH (10:00)
[2019-10-09] MEDS ORDERED: PT OWN MED DRAWER 7, Y5N ONE (10:27)
[2019-10-09 10:36] VITALS: BP 118/81
[2019-10-09] MEDS: HEPARIN NA (PORCINE) 5,000 UNITS/ML 1ML VIAL SQ SCH (11:16)
--- NOTE | 2019-10-09 12:00 | PN ---
Progress Note (short form) - Note Progress Note: Pt seen and examined. He is 1 day s/p right shoulder revision surgery. He is doing very well, has no c/o pain, is very comfortable. No complaints. Details of the surgery discussed. AVSS H/H stable Right shoulder looks good, very minimal drainage RUE is grossly NVI, excellent ROM at the right elbow, forearm, wrist, fingers Overall doing very well. Can DC home today. He understands restrictions. He should stay in the shoulder immobilizer for the next week. I'll see him in the office in 1 week
== END 2019-10-09 12:50 | disposition home or self-care (01) | DRG 517 ==
LOC: JER 15:31 → JERBED 16:08 → J5S 18:40
PROVIDERS: ADMIT Family Medicine; ATTEND Family Medicine
PROC: 0PS504Z Reposition Right Scapula with Internal Fixation Device, Open Approach (ICD-10-PCS; principal; 2019-10-08 08:00)
DX: S43.084A Other dislocation of right shoulder joint, initial encounter (principal); I10 Essential (primary) hypertension; E78.5 Hyperlipidemia, unspecified; Z85.850 Personal history of malignant neoplasm of thyroid; X58.XXXA Exposure to other specified factors, initial encounter; Y93.9 Activity, unspecified; Y92.89 Other specified places as the place of occurrence of the external cause; Y99.9 Unspecified external cause status
CPT/HCPCS: 36415; 73030-TC-RT-FY; 76000-TC-FY; 80053; 85025; 85610; 85730; 86850; 86900; 86901; 93005; 93010; 94760; 99285-25; J1644